=== PATIENT | female | born 1980 | race Caucasian/White ===

== ENCOUNTER 2016-12-15 01:22 | Emergency (ER) | payer OTHER ==
--- NOTE | ~2016-12-15 | ER ---
[facility] AGE[facility] 36 Y [address] ROOM: [place] [id number] LOCATION: [facility] ADMIT DATE: 12/15/2016 ER/Outpatient Report DISCHARGE DATE: 12/15/2016 FAMILY PHYSICIAN: Mariano Newton MD ATTENDING PHYSICIAN: William Banda Admission date and time documented on the medical record. I saw the patient at 0140 hours. CHIEF COMPLAINT: Nausea, vomiting, diarrhea, and abdominal cramping. HISTORY OF PRESENT ILLNESS: The patient is a 36-year-old female who had acute onset at 1900 hours last evening of nausea, vomiting, diarrhea accompanied with generalized intermittent abdominal cramping. Multiple vomiting episodes, multiple watery diarrhea episodes. No headache, eyes, ears, nose, throat, neck, or spine pain. No chest pain, shortness of breath. No lightheadedness, dizziness, syncope, or near syncope. No fall or trauma. Other than this illness, no recent colds, coughs, or flus. No urinary symptomatology. No joint or muscle swelling, redness, or pain. No skin eruptions or rash. She does have a history of anxiety. No neuro changes or endocrine problems. HOME MEDICATIONS: See attached medication list. ALLERGIES: NONE. SOCIAL HISTORY: The patient smokes half pack of cigarettes per day. Occasional intake of alcohol. SIGNIFICANT PAST MEDICAL HISTORY: Degenerative disk disease, chronic back pain, tobacco abuse, anxiety, and nephrolithiasis. OPERATIONS: Back surgery x3, , several steroid epidural injections, and herniorrhaphy. REVIEW OF SYSTEMS: All systems reviewed by me are negative with the exception of those discussed in the history of present illness. PATIENT'S NAME: BOBBY HESTER [facility] AGE: 36 Y [address] ROOM: [place], [place] [address] LOCATION: [facility] ADMIT DATE: 12/15/2016 ER/Outpatient Report DISCHARGE DATE: 12/15/2016 FAMILY PHYSICIAN: Mariano Newton MD ATTENDING PHYSICIAN: William Banda PHYSICAL EXAMINATION: VITAL SIGNS: Temperature 96.6, tympanic; pulse 105; respirations 20; blood pressure 141/88; O2 saturation on room air is 98%. HEENT: Head: Normocephalic. Eyes, Ears, Nose, Throat: Clear. Mucous membranes are moist. NECK: No nuchal rigidity. No thyromegaly or cervical adenopathy. No tenderness. SPINE: Nontender. No deformity. LUNGS: Clear. Good air flow. No rales, rhonchi, or wheezes. HEART: Regular. Pulses are palpable. ABDOMEN: Nondistended. Generalized tenderness, but no true guarding or rigidity. No rebound tenderness. No CVA tenderness. Bowel tones are hyperactive. No organomegaly or abnormal masses palpable. EXTREMITIES: No peripheral edema, cyanosis, or deformity. NEUROVASCULAR: Intact. SKIN: Clear. LABORATORY DATA: White count was 19,200, 82 segs, 10 lymphs, 7 monos, 1 baso. Hemoglobin 16.4, hematocrit 49.7, and platelet count was 261,000. CMS was normal except for a low potassium of 3.5, low CO2 content of 20, elevated glucose 130, slightly low GFR of 57. I did give the patient 2 L normal saline IV in the emergency room, Zofran 8 mg IV in the emergency for nausea and vomiting. Compazine 10 mg IV in the emergency room for nausea and vomiting. Bentyl 20 mg IM in the emergency room for cramping. Morphine 4 mg IV for pain. IMPRESSION: Nausea, vomiting, and diarrhea with abdominal cramping. PLAN: The patient dismissed home. Observation. Activity as tolerated. Rest. Clear liquid diet for 24 hours and BRAT diet for 2 days and regular diet. Bentyl 20 mg 4 times a day for 5 days. Zofran as needed for nausea, vomiting. Follow up with personal physician as needed. Discussion ensued with the patient concerning my findings and recommendations, she understands. MD KAREN JURADO/modl /[id number] d: 12/15/1630 t: 12/17/1612, OUTPATIENT REPORT
[~2016-12-15 01:22] MED LIST: ACETAMINOPHEN-1 EAC1 PO; MOBIC7.5 MG PO; ORTHO TRI-CYCL1 EACH PO; ULTRAM50 MG PO; VALIUM5 MG PO
[2016-12-15 02:25] LABS: BASOPHIL # 0.1 K/uL (0.0-0.2); BASOPHIL % 0.3 %; EOSINOPHIL # 0.1 K/uL (0.0-0.5); EOSINOPHIL % 0.7 %; HEMATOCRIT 49.7 % (33.0-46.0); HEMOGLOBIN 16.4 g/dL (11.0-15.0); IMMATURE GRANULOCYTE # 0.1 K/uL (0.0-0.3); IMMATURE GRANULOCYTE % 0.3 %; LYMPHOCYTE # 1.9 K/uL (0.8-4.0); LYMPHOCYTE % 9.8 %; MCH 26.6 pg (27.0-34.0); MCV 80.6 fl (83.0-98.0); MONOCYTE # 1.3 K/uL (0.0-1.0); MONOCYTE % 6.8 %; MPV 10.5 fl (9.4-12.4); NEUTROPHIL # (ANC) 15.8 K/uL (1.8-7.8); NEUTROPHIL % 82.1 %; NRBC % 0 /100WBC (0-0.00); PLATELET COUNT 261 K/uL (150-450); RBC 6.17 M/uL (3.50-5.50); RDW-CV 13.8 % (11.9-14.6)
[2016-12-15 02:27] LABS: WBC 19.2 K/uL (4.0-11.0)
[2016-12-15 02:49] LABS: ALBUMIN 4.5 gm/dL (3.5-5.0); CALCIUM 9.9 mg/dL (8.5-10.5); CREATININE 1.1 mg/dL (0.5-1.1); TOTAL BILIRUBIN 1.4 mg/dL (0.0-1.5)
[2016-12-15 02:51] LABS: ANION GAP 15.5 (10.0-19.0); POTASSIUM 3.5 mMol/L (3.7-5.1)
== END 2016-12-15 04:00 | disposition disaster alternative care site (69) ==
LOC: GMED 01:22
PROVIDERS: Emergency Medicine
DX: R11.2 Nausea with vomiting, unspecified (principal); R19.7 Diarrhea, unspecified; R10.9 Unspecified abdominal pain; F17.210 Nicotine dependence, cigarettes, uncomplicated; F41.9 Anxiety disorder, unspecified; Z98.890 Other specified postprocedural states; Z79.899 Other long term (current) drug therapy
CPT/HCPCS: J0500; J0780; J2270; J2405; J7030